=== PATIENT | male | born 2000 | race African-American/Black ===

== ENCOUNTER → 2023-06-05 | Emergency (ER) | payer OTHER ==
--- NOTE | 2023-06-05 14:21 | ER ---
Nurse's Notes [facility] Name: Chad Green Age: 22 yrs Sex: Male : 2000 Arrival Date: 06/05/2023 Time: 12:54 Bed 8 Private MD: Diagnosis: Foreign body ingestion (2 razor blades) Presentation: 06/05 12:59 Chief complaint: Patient states: states he swallowed 2 razor blades around 0900. cp4 Coronavirus screen: Client denies travel out of the [place] in the last 14 days. At this time, the client does not indicate any symptoms associated with coronavirus-19. Ebola Screen: Patient negative for fever greater than or equal to 101.5 degrees Fahrenheit, and additional compatible Ebola Virus Disease symptoms Patient denies exposure to infectious person. Patient denies travel to an Ebola-affected area in the 21 days before illness onset. No symptoms or risks identified at this time. Initial Sepsis Screen: Does the patient meet any 2 criteria? No. Patient's initial sepsis screen is negative. Does the patient have a suspected source of infection? No. Patient's initial sepsis screen is negative. Risk Assessment: Do you want to hurt yourself or someone else? Patient reports no desire to harm self or others. Onset of symptoms was June 05, 2023. 12:59 Method Of Arrival: Law Enforcement: [place] [employer] cp4 12:59 Acuity: LOC 3 cp4 13:23 Acuity: LOC 2 hb Triage Assessment: 13:00 General: Appears in no apparent distress. Behavior is calm, cooperative, appropriate cp4 for age. Pain: Complains of pain in abdomen. GI: Reports upper abdominal pain, Pain is 10 out of 10 on a pain scale. Historical: - Allergies: 13:00 No Known Allergies; cp4 - Immunization history:: Adult Immunizations up to date. - Social history:: Smoking status: Patient denies any tobacco usage or history of. Screenin:04 [facility] ED Fall Risk Assessment (Adult) History of falling in the last 3 months, cp4 including since admission No falls in past 3 months (0 pts) Confusion or Disorientation No (0 pts) Intoxicated or Sedated No (0 pts) Impaired Gait No (0 pts) Mobility Assist Device Used No (0 pt) Altered Elimination No (0 pt) Score/Fall Risk Level 0 - 2 = Low Risk Oriented to surroundings, Maintained a safe environment, Educated pt \T\ family on fall prevention, incl call for assistance when getting out of bed, Assessed \T\ reinforced patient's understanding of fall precautions, Hourly rounding (assess needs \T\ fall precautionary measures) done. Abuse screen: Denies threats or abuse. Nutritional screening: No deficits noted. Tuberculosis screening: No symptoms or risk factors identified. Assessment: 13:04 Reassessment: Patient appears in no apparent distress at this time. cp4 Vital Signs: 12:59 BP 111 / 66; Pulse 74; Resp 18; Pulse Ox 99% ; cp4 13:43 Temp 98.2; Weight 61.69 kg; Height 5 ft. 6 in. ; cp4 15:00 BP 134 / 85; Pulse 79; Resp 18; Pulse Ox 100% ; cp4 13:43 Body Mass Index 21.95 (61.69 kg, 167.64 cm) cp4 ED Course: 12:57 Patient arrived in ED. eb 12:59 Edie Chakraborty is Primary Nurse. cp4 12:59 Ck Richard MD is Attending Physician. kdr 13:00 Triage completed. cp4 13:00 Arm band placed on right wrist. Patient placed in the treatment room, on a stretcher. cp4 13:04 Bed in low position. Call light in reach. Side rails up X 1. cp4 13:04 No provider procedures requiring assistance completed. cp4 13:31 initiated a transfer with Kimmy from [facility]. eb 13:45 per Kimmy [facility] does not have any beds at this time/ for us to try sending eb to another facility and let them know where he goes. 13:47 initiated a transfer with Lisa from the [facility]. eb 14:00 CXR XRAY In Process Unspecified. EDMS 14:00 Abdomen 1 View (KUB) XRAY In Process Unspecified. EDMS 14:09 administrative approval given by Lisa Kenyon Rn/ patient has been accepted to [facility] ED/ Dr. Carol Nelson has accepted the patient in transfer without conference with Dr. Richard/ report to be called to [phone]. 14:11 called [facility] to notify them about where patient has been accepted/ Magdiel ibarra arrange transport and call back with an EMS eta. 16:13 Patient did not have IV access during this emergency room visit. cp4 16:14 Provided Education on: foreign body. cp4 Administered Medications: No medications were administered Medication: 13:04 VIS not applicable for this client. cp4 Outcome: 14:20 ER care complete, transfer ordered by . kdr 16:07 Patient left the ED. cp4 16:13 Transferred by ground EMS to [facility], Transfer form completed. X-rays sent cp4 w/ patient. 16:13 Condition: stable 16:13 Instructed on the need for transfer, Demonstrated understanding of instructions, follow-up care, Signatures: Dispatcher [employer] EDMS Ck Richard MD MD kdr Baxter, Heather, RN RN Pham Carbajal Christina cp4
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
--- NOTE | 2023-06-05 14:48 | RAD REPORT ---
EXAM DESCRIPTION: Ant Single View06/05/2023 1:58 pm CLINICAL HISTORY: ingestion COMPARISON: No comparisons TECHNIQUE: Portable AP view of the chest. FINDINGS: The lungs are clear. No pneumothorax or effusion. The cardiomediastinal contours are unre markable. No radiopaque foreign bodies. IMPRESSION: No acute cardiopulmonary process.
--- NOTE | 2023-06-05 14:53 | RAD REPORT ---
EXAM DESCRIPTION: RAD - Abdomen 1 View (KUB) - 06/05/2023 1:58 pm CLINICAL HISTORY: ingestion COMPARISON: No comparisons TECHNIQUE: Single AP view of the abdomen. FINDINGS: Nonobstructive bowel gas pattern. No air-fluid levels, free air, or pneumatosis. Mild stoo l burden throughout the colon. No suspicious calcifications. No significant bony abnormality. Two elongated metallic radiodensities in the left paramidline centr al abdomen. IMPRESSION: Two elongated metallic radiodensities in the left paramidline central abdomen, concernin g for the injected metallic objects. Mild stool burden throughout the colon.
[2023-06-05 16:21] VITALS: BP 111/66; TEMP 98.2; O2SAT 99
== END ==
LOC: ER 12:54
DX: T18.2XXA Foreign body in stomach, initial encounter (principal)
CPT/HCPCS: 71045; 74018; 99285